=== PATIENT | male | born 1970 | race Caucasian/White ===

== ENCOUNTER 2017-12-29 13:39 | Outpatient (CLI) | payer BC | END 2017-12-29 13:40 | disposition home or self-care (01) | LOC: BICMRI 13:39 | PROVIDERS: ATTEND Physician Assistant | DX: M25.572 Pain in left ankle and joints of left foot (principal); S92.215A Nondisplaced fracture of cuboid bone of left foot, initial encounter for closed fracture ==

== ENCOUNTER 2018-04-09 17:25 | Emergency (ER) | payer BC | END 2018-04-09 19:11 | disposition home or self-care (01) | LOC: SCSER 17:25 | DX: R60.0 Localized edema (principal); E78.00 Pure hypercholesterolemia, unspecified; Z79.899 Other long term (current) drug therapy | CPT/HCPCS: 99283 ==

== ENCOUNTER 2020-09-25 10:56 | Outpatient (CLI) | payer BC ==
--- NOTE | 2020-09-25 11:24 | RAD ---
XR Chest Pa Lat STANDARD HISTORY: Positive PPD COMPARISON: 03/18/2018 FINDINGS: The heart size is normal. The lungs are well expanded without focal areas of consolidation, pneumothorax or pleural effusions. IMPRESSION: No radiographic evidence of acute cardiopulmonary process or active pulmonary tuberculosi s.
== END 2020-09-25 10:57 | disposition home or self-care (01) ==
LOC: BICRAD 10:56
PROVIDERS: ATTEND Family Medicine
DX: R76.11 Nonspecific reaction to tuberculin skin test without active tuberculosis (principal)
CPT/HCPCS: 36415; 71046; 80053; 80061; 80074; 86769